=== PATIENT | male | born 1980 | race Caucasian/White ===

== ENCOUNTER 2024-05-01 10:04 | Outpatient (CLI) | payer BC ==
[2024-05-01] MEDS ORDERED: Magnevist 469MG/ML 20 ML VIAL ONE (10:05)
== END 2024-05-01 10:05 | disposition home or self-care (01) ==
LOC: CSHMRI 10:04
PROVIDERS: ATTEND Urology
DX: R97.20 Elevated prostate specific antigen [PSA] (principal)
CPT/HCPCS: 72197